=== PATIENT | male | born 1975 | race Caucasian/White ===

== ENCOUNTER 2018-12-03 13:26 | Inpatient (IN) | payer OTHER ==
[~2018-12-03] VITALS: Ht 185.4 cm; Wt 107.2 kg
--- NOTE | 2018-12-03 15:50 | NUR ---
Pt. admitted from [facility]. Pt. reports he had planned to commit suicide by hanging but drank 1 liter of Whiskey and fell asleep and that his found him with a rope and threw it away. Pt. states that the next next day he he drank another 1 liter of whiskey and then his daughters brought him the [facility] ER. Pt.'s BAL at [facility] was .249. Pt. arrived on unit via wheel chair. Pt. alert and oriented x4. Pt. calm and cooperative, presents with flushed face and slight tremor bilaterally in hands. Pt.'s vitals were 141/106 97%SPO2, 98.4 temp, 123 HR, and 20 resp. Pt. received ativan 1mg po. Pt. reports that he doesn't normally abuse ETOH but that he has been going through increased stress with his who is him and his work which is very stressful. Pt. is tearful, and reports he regrets planning to commit suicide. Pt. is calm and cooperative with admission. Skin assessment done and belongings checked in. Pt. placed on CIWA with score of 9. Pt.'s provider ordered Thiamine, clonidine, and folic acid, and 2MG Ativan now. RN to call Dr. Varma when CIWA is above 8 and give pt. 2mg ativan. Pt. not to exceed 6mg ativan in 3hr time. Med reconciliation done. Pt. ate dinner in community room. CIWA at 17:45 was 5. No ativan given. Pt. is ambulatory.
[2018-12-03] MEDS: LORazepam 1 MG tablet PO PRN ×2 (16:36→21:47)
[2018-12-03] MEDS ORDERED: OMEP40CA13 PO (17:18)
[2018-12-03] MEDS ORDERED: LISI40TA4 PO (17:18)
[2018-12-03] MEDS ORDERED: HYDR25TA4 PO (17:18)
[2018-12-03] MEDS ORDERED: lisinopril 20mg tablet PO ONE (17:35)
[2018-12-03] MEDS ORDERED: folic acid 1mg tablet PO ONE (17:45)
[2018-12-03] MEDS ORDERED: LORazepam 1 MG tablet PO ONE (17:45)
[2018-12-03] MEDS ORDERED: cloNIDine 0.1 mg tablet PO ONE (17:45)
[2018-12-03] MEDS ORDERED: thiamine 100mg tablet PO ONE (17:45)
[2018-12-03] MEDS ORDERED: LORazepam 1 MG tablet PO PRN (18:35)
[2018-12-03 19:46] VITALS: BP 135/83
[2018-12-03 20:05] VITALS: BP 142/104
[2018-12-03] MEDS: thiamine 100mg tablet PO SCH (20:41)
[2018-12-03] MEDS: folic acid 1mg tablet PO SCH (20:41)
[2018-12-03] MEDS: lisinopril 20mg tablet PO SCH (20:41)
--- NOTE | 2018-12-03 21:31 | NUR ---
Nursing Progress Note: Legal hold: 5150 Client on voluntary/involuntary status for DTS. Report received from nurse with use of LAURA Correa. Why are they here: Patient admitted from [facility]. Patient reports he had planned to commit suicide by hanging but drank 1 liter of Whiskey and fell asleep; his found him with a rope and threw it away. Patient states that the next day he drank another 1 liter of whiskey and then his daughters brought him to [facility]'s ER. Patient's blood alcohol level at [facility] was .249. Patient reports that he doesn't normally abuse ETOH but that he has been going through increased stress with his who is him and his work which is very stressful. Pt. is tearful, and reports he regrets planning to commit suicide. Assessment What has happened this shift: Patient is in his room in bed at change of shift. He appears anxious, and is being monitored per CIWA protocol. Patient expresses that he does not feel suicidal anymore. HE say's he is in "pain" He reports that he is lost because he's been with his for 20 years and now she is leaving him. Patients vitals signs has been stable and, he has only been reporting anxiety for the CIWA assessment. He is complaint with evening medications and keeps to himself and in his room this shift. S/I, H/I: Denies A/VH: Denies Sleep: See sleep assessment ADL's: Independent Group attendance: No groups this shift Were meds taken: Yes Any med S/E None noted Mental Status Exam Appearance: Well groomed, wearing green scrubs Eye contact: Direct Behavior: Stays in his room in bed Speech: Normal volume, rate and rhythm Mood: Depressed, sad, anxious Affect: Congruent to mood Thought process: Linear Thought Content: Thinking about his him Cognition: Alert & oriented x4 Insight: Fair Judgment: Fair Interventions PRN's used: Ativan Therapeutic interventions: Maintained a safe and therapeutic environment, ensured contract for safety, provided encouragement and positive reenforcement, monitored behaviors and need for intervention, CIWA per protocol, and maintained Q 15 min safety checks. Restraints/seclusion/emergency medication: N/A Justification of Continued Inpatient Treatment: Patient requires psychiatric evaluation for appropriate medication to stabilize current crisis. Without adequate treatment for current situation, patient is at high risk for readmission if discharged at this time.
[2018-12-03] MEDS ORDERED: padimate O/petrolatum,white stick (Chapstick) TP PRN (21:55)
[2018-12-04] MEDS: LORazepam 1 MG tablet PO PRN ×3 (04:06→19:53)
[2018-12-04] MEDS: pantoprazole 40mg Tablet.DR PO SCH (08:15)
[2018-12-04] MEDS: HYDROchlorothiazide 25mg tablet PO SCH (08:15)
[2018-12-04] MEDS: thiamine 100mg tablet PO SCH ×2 (08:15→19:51)
[2018-12-04] MEDS: folic acid 1mg tablet PO SCH ×2 (08:15→19:54)
[2018-12-04 08:18] VITALS: BP 125/87
--- NOTE | 2018-12-04 14:14 | NUR ---
Malnutrition consult: eating well, good appetite, eating 100%. d/w RN needing active diet order. No prior admission, no documented weight history. Pt presents with depression to unit. BMI 31. No edema. Normal muscle strength. No malnutrition at this time. Addendum: 12/04/18 at [address] Amended: Links added.
[2018-12-04] MEDS ORDERED: venlafaxine XR 37.5mg cap (Q24H) PO ONE (14:50)
[2018-12-04] MEDS ORDERED: mag hydrox/Alum hydrox/simeth 30ml oral suspension PO PRN (16:30)
[2018-12-04] MEDS ORDERED: hydrOXYzine 25 MG tablet PO PRN (16:30)
[2018-12-04] MEDS ORDERED: loperamide 2mg capsule PO PRN (16:30)
[2018-12-04] MEDS ORDERED: magnesium hydroxide 30ml (MOM) UD suspension PO PRN (16:30)
[2018-12-04] MEDS ORDERED: tuberculin, purif. prot. deriv. 5 units/0.1ml ID ONE (16:30)
[2018-12-04] MEDS ORDERED: acetaminophen 325mg tablet PO PRN ×2 (16:30)
[2018-12-04] MEDS: cloNIDine 0.1 mg tablet PO SCH ×2 (17:05→19:54)
--- NOTE | 2018-12-04 17:27 | NUR ---
Nursing Progress Note: Legal hold: 5150 Client on voluntary/involuntary status for DTS. Report received from nurse with use of LAURA Correa. Why are they here: Patient admitted from [facility]. Patient reports he had planned to commit suicide by hanging but drank 1 liter of Whiskey and fell asleep; his found him with a rope and threw it away. Patient states that the next day he drank another 1 liter of whiskey and then his daughters brought him to [facility]'s ER. Patient's blood alcohol level at [facility] was .249. Patient reports that he doesn't normally abuse ETOH but that he has been going through increased stress with his who is him and his work which is very stressful. Pt. is tearful, and reports he regrets planning to commit suicide. Assessment What has happened this shift: Received patient lying on bed. Patient has flat affect and continues to endorse depression. Patient denies suicidal thoughts at this time. Patients did visit have busy hours and afterwords patient was on his bed and stated he was just feeling really sad and became tearful. Patient did state that he was looking forward to getting out of here so he can move onto the next phase. That phase of being a rehab to drinking alcohol. Later in the day patient did shower. Patient refused all groups today and did a lot of reading while laying on his bed. Patient received PPD today which he tolerated well. S/I, H/I: Denies A/VH: Denies Sleep: See sleep assessment ADL's: Independent Group attendance: No groups this shift Were meds taken: Yes Any med S/E None noted Mental Status Exam Appearance: Well groomed, wearing green scrubs Eye contact: Direct Behavior: Stays in his room in bed Speech: Normal volume, rate and rhythm Mood: Depressed, sad, anxious Affect: Congruent to mood Thought process: Linear Thought Content: Thinking about his him Cognition: Alert & oriented x4 Insight: Fair Judgment: Fair Interventions PRN's used: Ativan Therapeutic interventions: Maintained a safe and therapeutic environment, ensured contract for safety, provided encouragement and positive reenforcement, monitored behaviors and need for intervention, CIWA per protocol, and maintained Q 15 min safety checks. Restraints/seclusion/emergency medication: N/A Justification of Continued Inpatient Treatment: Patient requires psychiatric evaluation for appropriate medication to stabilize current crisis. Without adequate treatment for current situation, patient is at high risk for readmission if discharged at this time.
[2018-12-04 19:38] VITALS: BP 140/101
[2018-12-04] MEDS: lisinopril 20mg tablet PO SCH (19:52)
[2018-12-04] MEDS: gabapentin 100mg capsule PO SCH (20:21)
[2018-12-04] MEDS ORDERED: gabapentin 400mg capsule PO SCH (21:00)
--- NOTE | 2018-12-04 22:36 | NUR ---
Nursing Progress Note: Legal hold: 5150 Client on voluntary/involuntary status for DTS. Report received from nurse with use of LAURA Correa. Why are they here: Patient admitted from [facility]. Patient reports he had planned to commit suicide by hanging but drank 1 liter of Whiskey and fell asleep; his found him with a rope and threw it away. Patient states that the next day he drank another 1 liter of whiskey and then his daughters brought him to [facility]'s ER. Patient's blood alcohol level at [facility] was .249. Patient reports that he doesn't normally abuse ETOH but that he has been going through increased stress with his who is him and his work which is very stressful. Pt. is tearful, and reports he regrets planning to commit suicide. Assessment What has happened this shift: Received patient lying on bed. Patient has flat affect and continues to endorse depression. Patient denies suicidal thoughts at this time. Patients did visit have busy hours and afterwords patient was on his bed and stated he was just feeling really sad and became tearful. Patient did state that he was looking forward to getting out of here so he can move onto the next phase. That phase of being a rehab to drinking alcohol. Later in the day patient did shower. Patient refused all groups today and did a lot of reading while laying on his bed. Patient received PPD today which he tolerated well. S/I, H/I: Denies A/VH: Denies Sleep: See sleep assessment ADL's: Independent Group attendance: No groups this shift Were meds taken: Yes Any med S/E None noted Mental Status Exam Appearance: Well groomed, wearing green scrubs Eye contact: Direct Behavior: Stays in his room in bed Speech: Normal volume, rate and rhythm Mood: Depressed, sad, anxious Affect: Congruent to mood Thought process: Linear Thought Content: Thinking about his him Cognition: Alert & oriented x4 Insight: Fair Judgment: Fair Interventions PRN's used: Ativan Therapeutic interventions: Maintained a safe and therapeutic environment, ensured contract for safety, provided encouragement and positive reenforcement, monitored behaviors and need for intervention, CIWA per protocol, and maintained Q 15 min safety checks. Restraints/seclusion/emergency medication: N/A Justification of Continued Inpatient Treatment: Patient requires psychiatric evaluation for appropriate medication to stabilize current crisis. Without adequate treatment for current situation, patient is at high risk for readmission if discharged at this time. Addendum: 12/04/18 at 2238 by Criselda Nguyen RN Note entered in error. Luis Alberto see other Nursing Progress Note for [employer] 12/04.
--- NOTE | 2018-12-04 22:38 | NUR ---
NOC 12/04-Nursing Progress Note: Legal hold: 5150 Client on voluntary/involuntary status for DTS. Report received from nurse with use of LAURA Garcia. Why are they here: Patient admitted from [facility]. Patient reports he had planned to commit suicide by hanging but drank 1 liter of Whiskey and fell asleep; his found him with a rope and threw it away. Patient states that the next day he drank another 1 liter of whiskey and then his daughters brought him to [facility]'s ER. Patient's blood alcohol level at [facility] was .249. Patient reports that he doesn't normally abuse ETOH but that he has been going through increased stress with his who is him and his work which is very stressful. Pt. is tearful, and reports he regrets planning to commit suicide. Assessment What has happened this shift: Patient in the hedrick walking at change of shift. He presents with a flat, depressed affect, but is talkative and discusses his day. He reports still feeling depressed, but denies any current SI. He reports that his kids will be here visiting for visiting hours which seems to brighten his affect a bit. After visiting with his children patient is tearful and reports being anxious and states "I just want to go to sleep right now." Patient is given his space. When checked on later patient is in his bed reading. He denies SI/HI, AH/VH this shift. He is compliant with HS medications. CIWA protocol done as ordered. S/I, H/I: Denies A/VH: Denies Sleep: See sleep assessment ADL's: Independent Group attendance: No groups this shift Were meds taken: Yes Any med S/E None noted Mental Status Exam Appearance: Well groomed, wearing green scrubs Eye contact: Direct Behavior: Stays in his room in bed reading Speech: Normal volume, rate and rhythm Mood: Depressed, sad, anxious Affect: Congruent to mood Thought process: Linear Thought Content: Thinking about his children and what he is going to do next. Cognition: Alert & oriented x4 Insight: Fair Judgment: Fair Interventions PRN's used: Ativan Therapeutic interventions: Maintained a safe and therapeutic environment, ensured contract for safety, provided encouragement and positive reenforcement, monitored behaviors and need for intervention, CIWA per protocol, and maintained Q 15 min safety checks. Restraints/seclusion/emergency medication: N/A Justification of Continued Inpatient Treatment: Patient requires psychiatric evaluation for appropriate medication to stabilize current crisis. Without adequate treatment for current situation, patient is at high risk for readmission if discharged at this time.
[2018-12-05] MEDS: pantoprazole 40mg Tablet.DR PO SCH (07:20)
[2018-12-05] MEDS: venlafaxine XR 75mg capsule (Q24H) PO SCH (07:20)
[2018-12-05] MEDS: HYDROchlorothiazide 25mg tablet PO SCH (07:20)
[2018-12-05] MEDS: cloNIDine 0.1 mg tablet PO SCH ×3 (07:20→20:26)
[2018-12-05] MEDS: thiamine 100mg tablet PO SCH ×2 (07:20→20:26)
[2018-12-05] MEDS: folic acid 1mg tablet PO SCH ×2 (07:20→20:26)
[2018-12-05] MEDS: gabapentin 100mg capsule PO SCH ×2 (07:23→12:20)
[2018-12-05] MEDS: LORazepam 1 MG tablet PO SCH ×3 (07:43→20:25)
[2018-12-05 08:17] VITALS: BP 141/93
--- NOTE | 2018-12-05 15:44 | NUR ---
Nursing Progress Note: Diogenes Legal hold: 5150 Client on voluntary/involuntary status for DTS. Report received from Dahlia MONTEZ Why are they here: Patient admitted from [facility]. Patient reports he had planned to commit suicide by hanging but drank 1 liter of Whiskey and fell asleep; his found him with a rope and threw it away. Patient states that the next day he drank another 1 liter of whiskey and then his daughters brought him to [facility]'s ER. Patient's blood alcohol level at [facility] was .249. Patient reports that he doesn't normally abuse ETOH but that he has been going through increased stress with his who is him and his work which is very stressful. Pt. is tearful, and reports he regrets planning to commit suicide. Ciwa assessment to be discontinued per Dr. Varma if vitals remain stable and scores do not increase. Assessment: What has happened this shift: Received patient lying on bed. Patient has flat affect and continues to endorse depression. Patient denies suicidal thoughts at this time. Initially client had no complaints but then shortly after assessment, client told a Tech that he needed Ativan. Client appeared anxious and shaky when approached with Ativan. He took without problems. His regular scheduled Ativan was held at 0800 due to administration just a bit earlier. Received a visit from his today and it appeared to go well. Client was quiet after visit and returned to his room. When he was checked, he had his head covered and was mute. He was questioned again and he stated, " I am ok" and continued his rest.Took his afternoon medication without problems and was then visiting with peers in Day room. Consumed all of his lunch and then asked for a shower which was granted. Client returned to his room after group and rested in bed. S/I, H/I: Denies A/VH: Denies Sleep: See sleep assessment ADL's: Independent Group attendance: afternoon Were meds taken: Yes Any med S/E None noted Mental Status Exam Appearance: Well groomed, wearing green scrubs Eye contact: Direct Behavior: Social on unit. Speech: Normal volume, rate and rhythm Mood: Depressed, sad, anxious Affect: Congruent to mood Thought process: Linear Thought Content: marraige complications Cognition: Alert & oriented x4 Insight: Fair Judgment: Fair Interventions: PRN's used: Ativan Therapeutic interventions: Maintained a safe and therapeutic environment, ensured contract for safety, provided encouragement and positive reenforcement, monitored behaviors and need for intervention, CIWA per protocol, and maintained Q 15 min safety checks. Restraints/seclusion/emergency medication: N/A Justification of Continued Inpatient Treatment: Patient requires psychiatric evaluation. and stabilization.
[2018-12-05 19:00] VITALS: BP 132/97
[2018-12-05] MEDS: gabapentin 300mg capsule PO SCH (20:26)
[2018-12-05] MEDS: lisinopril 20mg tablet PO SCH (20:26)
--- NOTE | 2018-12-06 01:01 | NUR ---
NOC 12/04-Nursing Progress Note: Legal hold: 5150 Client on voluntary/involuntary status for DTS. Report received from nurse with use of LAURA Garcia. Why are they here: Patient admitted from [facility]. Patient reports he had planned to commit suicide by hanging but drank 1 liter of Whiskey and fell asleep; his found him with a rope and threw it away. Patient states that the next day he drank another 1 liter of whiskey and then his daughters brought him to [facility]'s ER. Patient's blood alcohol level at [facility] was .249. Patient reports that he doesn't normally abuse ETOH but that he has been going through increased stress with his who is him and his work which is very stressful. Pt. is tearful, and reports he regrets planning to commit suicide. Assessment What has happened this shift: Patient is in the group room at change of shift. He spends his time this evening visiting with his during visiting ours and then in his room reading. He agrees to a 1:1 assessment at his bedside. Patient denies SI/HI, AH/VH. He states that things are improving with him and his and say's "It hurts a little less everyday." He reports that he is still depressed and rates it a 8/10. Conversation about when he discharges includes seeking counseling, a PCP and his need for a alcohol treatment program such as AA, patient has fair insight into his situation and knows he needs to take these steps to help get better. He is complaint with HS medications. S/I, H/I: Denies A/VH: Denies Sleep: See sleep assessment ADL's: Independent Group attendance: No groups this shift Were meds taken: Yes Any med S/E None noted Mental Status Exam Appearance: Well groomed, wearing green scrubs Eye contact: Direct Behavior: Stays in his room in bed reading Speech: Normal volume, rate and rhythm Mood: Depressed, sad, anxious Affect: Congruent to mood Thought process: Linear Thought Content: Things he needs to continue once discharged. Cognition: Alert & oriented x4 Insight: Fair Judgment: Fair Interventions PRN's used: None Therapeutic interventions: Maintained a safe and therapeutic environment, ensured contract for safety, provided encouragement and positive reenforcement, monitored behaviors and need for intervention, CIWA per protocol, and maintained Q 15 min safety checks. Restraints/seclusion/emergency medication: N/A Justification of Continued Inpatient Treatment: Patient requires psychiatric evaluation for appropriate medication to stabilize current crisis. Without adequate treatment for current situation, patient is at high risk for readmission if discharged at this time. Addendum: 12/06/18 at 0106 by Criselda Nguyen RN This is for NOC 12/05 Note, not 12/04.
[2018-12-06] MEDS: LORazepam 1 MG tablet PO SCH ×4 (02:00→20:34)
[2018-12-06 08:00] VITALS: BP 116/86
[2018-12-06] MEDS: cloNIDine 0.1 mg tablet PO SCH ×5 (08:34→20:37)
[2018-12-06] MEDS: gabapentin 300mg capsule PO SCH ×3 (08:34→20:35)
[2018-12-06] MEDS: thiamine 100mg tablet PO SCH ×2 (08:34→20:35)
[2018-12-06] MEDS: venlafaxine XR 75mg capsule (Q24H) PO SCH (08:34)
[2018-12-06] MEDS: pantoprazole 40mg Tablet.DR PO SCH (08:34)
[2018-12-06] MEDS: HYDROchlorothiazide 25mg tablet PO SCH (08:34)
[2018-12-06] MEDS: folic acid 1mg tablet PO SCH ×2 (08:34→20:34)
--- NOTE | 2018-12-06 16:57 | NUR ---
Nursing Progress Note Legal hold: 5150 Client on voluntary/involuntary status for DTS. Report received from Dahlia MONTEZ Why are they here: Patient admitted from [facility]. Patient reports he had planned to commit suicide by hanging but drank 1 liter of Whiskey and fell asleep; his found him with a rope and threw it away. Patient states that the next day he drank another 1 liter of whiskey and then his daughters brought him to [facility]'s ER. Patient's blood alcohol level at [facility] was .249. Patient reports that he doesn't normally abuse ETOH but that he has been going through increased stress with his who is him and his work which is very stressful. Pt. is tearful, and reports he regrets planning to commit suicide. Ciwa assessment to be discontinued per Dr. Varma if vitals remain stable and scores do not increase. Assessment: What has happened this shift: Patient up and visible on the unit today. Patient attended all meals in partially attending groups. Patient affect flat to sad and at times during interaction appears on the verge of tears. Patient continues to endorse depression, but denies suicidal thoughts and states he is looking forward to the next phase of getting his life back in order which includes going to a rehab for alcoholism. S/I, H/I: Denies A/VH: Denies Sleep: See sleep assessment ADL's: Independent Group attendance: afternoon Were meds taken: Yes Any med S/E None noted Mental Status Exam Appearance: Well groomed, wearing green scrubs Eye contact: Direct Behavior: Social on unit. Speech: Normal volume, rate and rhythm Mood: Depressed, sad, anxious Affect: Congruent to mood Thought process: Linear Thought Content: Marriage complications Cognition: Alert & oriented x4 Insight: Fair Judgment: Fair Interventions: PRN's used: Therapeutic interventions: Maintained a safe and therapeutic environment, ensured contract for safety, provided encouragement and positive reenforcement, monitored behaviors and need for intervention, and maintained Q 15 min safety checks. Restraints/seclusion/emergency medication: N/A Justification of Continued Inpatient Treatment: Patient requires psychiatric evaluation. and stabilization.
[2018-12-06 19:00] VITALS: BP 105/73
[2018-12-06] MEDS: lisinopril 20mg tablet PO SCH (20:35)
--- NOTE | 2018-12-07 00:45 | NUR ---
RN PROGRESS NOTE: THIS SHIFT: Client was visited by son. Client was in the group room, sitting alone after visit. Affect and mood are depressed. Client became tearful and stated it was hard to see his son leave. Client stated his mood was more depressed today. Client acknowledged he was on a 5250 and he was not expecting to stay on the unit for another two weeks. He is still endorsing rehab. Compliant with medications. Client would be at risk for self harm if discharged.
[2018-12-07] MEDS: LORazepam 1 MG tablet PO SCH ×4 (02:00→20:29)
[2018-12-07] MEDS: cloNIDine 0.1 mg tablet PO SCH ×2 (07:14→20:30)
[2018-12-07] MEDS: venlafaxine XR 75mg capsule (Q24H) PO SCH (07:14)
[2018-12-07] MEDS: folic acid 1mg tablet PO SCH ×2 (07:14→20:28)
[2018-12-07] MEDS: gabapentin 300mg capsule PO SCH ×3 (07:15→20:30)
[2018-12-07] MEDS: HYDROchlorothiazide 25mg tablet PO SCH (07:15)
[2018-12-07] MEDS: pantoprazole 40mg Tablet.DR PO SCH (07:15)
[2018-12-07] MEDS: thiamine 100mg tablet PO SCH ×2 (07:15→20:29)
[2018-12-07 08:00] VITALS: BP 120/89
[2018-12-07 08:34] VITALS: BP 120/89
--- NOTE | 2018-12-07 15:25 | NUR ---
Nursing Progress Note: Legal hold: 5250 Client on involuntary status for DTS. Report received from Esme Cordova RN Why are they here: Patient admitted from [facility]. Patient reports he had planned to commit suicide by hanging but drank 1 liter of Whiskey and fell asleep; his found him with a rope and threw it away. Patient states that the next day he drank another 1 liter of whiskey and then his daughters brought him to [facility]'s ER. Patient's blood alcohol level at [facility] was .249. Patient reports that he doesn't normally abuse ETOH but that he has been going through increased stress with his who is him and his work which is very stressful. Pt. is tearful, and reports he regrets planning to commit suicide. Assessment What has happened this shift: Patient awake at change of shift and took all medications as prescribed. He is in good spirits talking about going to a rehab program. He reports that his insurance has been really helpful in arranging for aftercare for him. His came to visit which he reports as an amicable visit. He was visible on the unit socializing with staff and patients. He attended meals and group. S/I, H/I: Denies A/VH: Denies Sleep: See sleep assessment ADL's: Independent showered today Group attendance: YES Were meds taken: Yes Any med S/E None noted Mental Status Exam Appearance: Well groomed, showered, clean Eye contact: Direct Behavior: Calm and pleasant Speech: Normal volume, rate and rhythm Mood: I feel good. Affect: Congruent to mood Thought process: Linear Thought Content: Future oriented Cognition: Alert & oriented x4 Insight: Fair Judgment: Fair Interventions PRN's used: None Therapeutic interventions: Maintained a safe and therapeutic environment, ensured contract for safety, provided encouragement and positive reenforcement, monitored behaviors and need for intervention, CIWA per protocol, and maintained Q 15 min safety checks. Restraints/seclusion/emergency medication: N/A Justification of Continued Inpatient Treatment: Patient requires psychiatric evaluation for appropriate medication to stabilize current crisis. Without adequate treatment for current situation, patient is at high risk for readmission if discharged at this time.
[2018-12-07 19:57] VITALS: BP 136/92
[2018-12-07] MEDS: lisinopril 20mg tablet PO SCH (20:30)
--- NOTE | 2018-12-08 01:59 | NUR ---
bud Progress Note: Legal hold: 5150 Client on voluntary/involuntary status for DTS. Report received from nurse with use of LAURA Correa. Why are they here: Patient admitted from [facility]. Patient reports he had planned to commit suicide by hanging but drank 1 liter of Whiskey and fell asleep; his found him with a rope and threw it away. Patient states that the next day he drank another 1 liter of whiskey and then his daughters brought him to [facility]'s ER. Patient's blood alcohol level at [facility] was .249. Patient reports that he doesn't normally abuse ETOH but that he has been going through increased stress with his who is him and his work which is very stressful. Pt. is tearful, and reports he regrets planning to commit suicide. Assessment What has happened this shift: The patient was seen in his room for 1:1. He had been wandering the halls, and not interacting with other clients. He presents as sad and depressed. The patient reports that his cheated on him, and that made him suicidal. He had already been having a hard time at stressful work place, so drank himself unconscious. "Luckily this kept me from being able to hang myself." He's talking to his and she says the divorce will happen, and he's ready to move forward. The patient believes he can get off alcohol with help from rehab. He's focused on his children who need their dad. The patient spent the evening walking around, but doesn't really interact with others. He took his HS meds, then went to bed. S/I, H/I: Denies A/VH: Denies Sleep: See sleep assessment ADL's: Independent Group attendance: No groups this shift Were meds taken: Yes Any med S/E None noted Mental Status Exam Appearance: Well groomed, wearing green scrubs Eye contact: Direct Behavior: Isolates, walks the halls. Speech: Normal volume, rate and rhythm Mood: Depressed, sad, anxious Affect: Flat Thought process: Linear, goal oriented. Thought Content: Thinking about his him Cognition: Alert & oriented x4 Insight: Fair Judgment: Fair Interventions PRN's used: Ativan Therapeutic interventions: Maintained a safe and therapeutic environment, ensured contract for safety, provided encouragement and positive reenforcement, monitored behaviors and need for intervention, CIWA per protocol, and maintained Q 15 min safety checks. Restraints/seclusion/emergency medication: N/A Justification of Continued Inpatient Treatment: Patient requires psychiatric evaluation for appropriate medication to stabilize current crisis. Without adequate treatment for current situation, patient is at high risk for readmission if discharged at this time.
[2018-12-08] MEDS: LORazepam 1 MG tablet PO SCH ×3 (07:33→20:11)
[2018-12-08] MEDS: folic acid 1mg tablet PO SCH ×2 (07:35→20:10)
[2018-12-08] MEDS: HYDROchlorothiazide 25mg tablet PO SCH (07:35)
[2018-12-08] MEDS: pantoprazole 40mg Tablet.DR PO SCH (07:35)
[2018-12-08] MEDS: thiamine 100mg tablet PO SCH ×2 (07:35→20:10)
[2018-12-08] MEDS: gabapentin 300mg capsule PO SCH ×3 (07:35→20:10)
[2018-12-08] MEDS: naltrexone 50mg tablet PO SCH (07:36)
[2018-12-08] MEDS: venlafaxine XR 75mg capsule (Q24H) PO SCH (07:42)
[2018-12-08] MEDS: cloNIDine 0.1 mg tablet PO SCH ×2 (07:43→20:10)
[2018-12-08 07:53] VITALS: BP 109/65
--- NOTE | 2018-12-08 14:23 | NUR ---
Initial: Good appetite, eating 75-100% of meals. No nutrition problem at this time. Recommend: 1. continue regular diet 2. weekly wts 3. bowel care as needed Addendum: 12/08/18 at [address] Amended: Links added.
--- NOTE | 2018-12-08 14:40 | NUR ---
Nursing Progress Note: Diogenes Legal hold: 5150 Client on voluntary/involuntary status for DTS. Report received from Hannah MONTEZ Why are they here: Patient admitted from [facility]. Patient reports he had planned to commit suicide by hanging but drank 1 liter of Whiskey and fell asleep; his found him with a rope and threw it away. Patient states that the next day he drank another 1 liter of whiskey and then his daughters brought him to [facility]'s ER. Patient's blood alcohol level at [facility] was .249. Patient reports that he doesn't normally abuse ETOH but that he has been going through increased stress with his who is him and his work which is very stressful. Pt. is tearful, and reports he regrets planning to commit suicide. Assessment What has happened this shift: Client was in bed at start of shift. Aroused easily for morning medications and was compliant. Client attended breakfast in Group room and visited with peers. Client presents as sad and withdrawn but argues he is, "ready to go home". Client had a visit from his this am and it appeared to go well. Client attended am group and participated. He denies any thoughts of self harm and contracts verbally for safe unit behaviors. Visible and social on unit and taking phone calls. No behavioral issues as of this writing. Attended groups and was no behavioral issue this shift. S/I, H/I: Denies A/VH: Denies Sleep: See sleep assessment ADL's: Independent Group attendance: yes Were meds taken: Yes Any med S/E None noted Mental Status Exam Appearance: Well groomed, wearing green scrubs Eye contact: Direct Behavior: Isolates, walks the halls. Speech: Normal volume, rate and rhythm Mood: Depressed, sad, anxious Affect: Flat Thought process: Linear, goal oriented. Thought Content: Thinking about his him Cognition: Alert & oriented x4 Insight: Fair Judgment: Fair Interventions PRN's used: Therapeutic interventions: Maintained a safe and therapeutic environment, ensured contract for safety, provided encouragement and positive reenforcement, monitored behaviors and need for intervention, CIWA per protocol, and maintained Q 15 min safety checks. Restraints/seclusion/emergency medication: N/A Justification of Continued Inpatient Treatment: Patient requires psychiatric evaluation for appropriate medication to stabilize current crisis. Without adequate treatment for current situation, patient is at high risk for readmission if discharged at this time.
[2018-12-08 19:00] VITALS: BP 141/98
[2018-12-08] MEDS: lisinopril 20mg tablet PO SCH (20:11)
--- NOTE | 2018-12-09 03:30 | NUR ---
RN PROGRESS NOTE: LEGAL HOLD: 5150 for DTS. Report received from TC Goldman REASON FOR ADMISSION: Client reported he had planned to commit suicide by hanging but drank 1 liter of Whiskey and fell asleep; his found him with a rope and threw it away. The next day his daughter found him and took him to [facility]. ASSESSMENT: THIS SHIFT: Client was in the rec room at [facility] watching TV. His affect is blunted and he appears depressed. Client reported he "misses his family" but that "things are going better". Client did not discuss his marriage. He stated, "I've gotten a lot of visits and phone calls." Client was compliant with meds. He awoke around 1:30 c/o a leg cramp. He refused PRN medications and stated, "I'll just walk it off." S/I, H/I: Denies A/VH: Denies ADL's: Independent Group attendance: N/A Were meds taken: Yes Any med S/E: None noted MSE: Appearance: Well groomed, wearing green scrubs Eye contact: Direct Behavior: Isolative. Speech: Normal volume, rate and rhythm Mood: Depressed, sad, anxious Affect: Blunted. Thought process: Linear, goal oriented. Thought Content: Family stress. Cognition: Alert & oriented x4 Insight: Fair Judgment: Fair INTERVENTIONS: Medications, 1:1 support. Justification of Continued Inpatient Treatment: Client needs further med stabilization and therapeutic support as he is a high risk for self harm and readmission.
[2018-12-09 07:42] VITALS: BP 127/84
[2018-12-09] MEDS: folic acid 1mg tablet PO SCH ×2 (07:47→20:34)
[2018-12-09] MEDS: thiamine 100mg tablet PO SCH ×2 (07:47→20:34)
[2018-12-09] MEDS: gabapentin 300mg capsule PO SCH ×3 (07:47→20:34)
[2018-12-09] MEDS: LORazepam 1 MG tablet PO SCH ×2 (07:47→13:36)
[2018-12-09] MEDS: venlafaxine XR 75mg capsule (Q24H) PO SCH (07:48)
[2018-12-09] MEDS: pantoprazole 40mg Tablet.DR PO SCH (07:48)
[2018-12-09] MEDS: HYDROchlorothiazide 25mg tablet PO SCH (07:48)
[2018-12-09] MEDS: naltrexone 50mg tablet PO SCH (07:48)
[2018-12-09] MEDS: cloNIDine 0.1 mg tablet PO SCH ×2 (07:48→20:34)
--- NOTE | 2018-12-09 17:12 | NUR ---
Nursing Progress Note Legal hold: 5150 Client on voluntary/involuntary status for DTS. Report received from Kasie MONTEZ, with use of SBAR. Why are they here: Patient admitted from [facility]. Patient reports he had planned to commit suicide by hanging but drank 1 liter of Whiskey and fell asleep; his found him with a rope and threw it away. Patient states that the next day he drank another 1 liter of whiskey and then his daughters brought him to [facility]'s ER. Patient's blood alcohol level at [facility] was .249. Patient reports that he doesn't normally abuse ETOH but that he has been going through increased stress with his who is him and his work which is very stressful. Pt. is tearful, and reports he regrets planning to commit suicide. Ciwa assessment to be discontinued per Dr. Varma if vitals remain stable and scores do not increase. Assessment: What has happened this shift: Received Pt in bed sleeping w/o distress at change of shift. Patient up and visible on the unit today. Patient attended all meals and attended groups. Patient feels like he is making progress and is able to joke at times about depression and generally going through hard times. Appears depressed and recognizes how alcohol has affected his ability to cope with both posotive and negative emotions. Affect remains flat and mood is sad. Patient continues to endorse depression, but denies suicidal thoughts and states he is looking forward to the next phase of getting his life back in order which includes going to a rehab for alcoholism. S/I, H/I: Denies A/VH: Denies Sleep: See sleep assessment ADL's: Independent Group attendance: afternoon Were meds taken: Yes Any med S/E None noted Mental Status Exam Appearance: Well groomed, wearing green scrubs Eye contact: Direct Behavior: Social on unit. Speech: Normal volume, rate and rhythm Mood: Depressed, sad, anxious Affect: Congruent to mood Thought process: Linear Thought Content: Marriage complications Cognition: Alert & oriented x4 Insight: Fair Judgment: Fair Interventions: PRN's used: Therapeutic interventions: Maintained a safe and therapeutic environment, ensured contract for safety, provided encouragement and positive reenforcement, monitored behaviors and need for intervention, and maintained Q 15 min safety checks. Restraints/seclusion/emergency medication: N/A Justification of Continued Inpatient Treatment: Patient requires psychiatric evaluation. and stabilization.
[2018-12-09 19:45] VITALS: BP 130/92
[2018-12-09] MEDS: lisinopril 20mg tablet PO SCH (20:34)
[2018-12-09] MEDS: traZODone 50mg tablet PO PRN ×2 (20:43→22:59)
[2018-12-09] MEDS ORDERED: LORazepam 1 MG tablet PO ONE (21:00)
--- NOTE | 2018-12-09 22:19 | NUR ---
Nursing Progress Note: One to one with the patient to assess for severity of depressive symptoms and self harm risk. He remains on q 15 minute safety checks and has not had any self injurious behaviors reported or observed. He denies active or passive suicidal thinking but he appeared depressed with a blunted affect and was tearful during the evening assessment when talking about his . He stated that he has accepted that his marriage is over and the grieving process was discussed with him and that there would be times when he experienced different emotions. He asked about medications that he could take that if he drank that he would be sick and he was encouraged to discuss it with the psychiatrist. He reports medication side effects of fatigue. He denies cravings for ETOH or withdrawal symptoms. He reports he has never been in AA or etoh treatment but is now interested in being sober. He stated that he has chronic problems with sleep and was drinking at night to go to sleep. He also stated that his job has been very stressful and that after he is discharged he plans to look for different work. He denies any psychotic symptoms and none were evident during the assessment. He denies thoughts to harm others. He stated that he wants to live for his kids. He stated that he wants to be discharged by Saturday to attend a cheer leading event with his daughter.
[2018-12-10] MEDS: cloNIDine 0.1 mg tablet PO SCH ×2 (07:39→20:39)
[2018-12-10] MEDS: gabapentin 300mg capsule PO SCH ×3 (07:39→20:39)
[2018-12-10] MEDS: pantoprazole 40mg Tablet.DR PO SCH (07:39)
[2018-12-10] MEDS: venlafaxine XR 75mg capsule (Q24H) PO SCH (07:39)
[2018-12-10] MEDS: HYDROchlorothiazide 25mg tablet PO SCH (07:39)
[2018-12-10] MEDS: naltrexone 50mg tablet PO SCH (07:41)
[2018-12-10] MEDS: thiamine 100mg tablet PO SCH ×2 (07:41→20:39)
[2018-12-10] MEDS: folic acid 1mg tablet PO SCH ×2 (07:41→20:39)
[2018-12-10] MEDS ORDERED: LORazepam 1 MG tablet PO SCH (08:00)
[2018-12-10 08:27] VITALS: BP 110/60
[2018-12-10] MEDS: LORazepam 1 MG tablet PO SCH ×2 (12:27→20:39)
--- NOTE | 2018-12-10 14:56 | NUR ---
Assessment:Nursing Progress Note: Jatin Legal hold: 5150 Client on voluntary/involuntary status for DTS. Report received from Kasie MONTEZ, with use of SBAR. Why are they here: Patient admitted from [facility]. Patient reports he had planned to commit suicide by hanging but drank 1 liter of Whiskey and fell asleep; his found him with a rope and threw it away. Patient states that the next day he drank another 1 liter of whiskey and then his daughters brought him to [facility]'s ER. Patient's blood alcohol level at [facility] was .249. Patient reports that he doesn't normally abuse ETOH but that he has been going through increased stress with his who is him and his work which is very stressful. Pt. is tearful, and reports he regrets planning to commit suicide. What has happened this shift: Received Pt in bed sleeping but awake. No somatic complaints at the time of this writing. Patient is compliant with all aspects of his care and took medications without issues. Patient BP was 95/62 when VS were taken. Gal recheck yielded a BP of 110/60. Client is focused on discharge and wants to see his son play his first football game this weekend. He verbally contracts for safe unit behaviors and currently denies S/I. Client needs to be proactive as it pertains to discharge follow up appointments. It has been requested of client to contact an aftercare provider and furnish the name to Certified Peer Specialist involved with his case. Client was told to anticipate his discharge on Saturday. S/I, H/I: Denies A/VH: Denies Sleep: See sleep assessment ADL's: Independent Group attendance: Yes Were meds taken: Yes Any med S/E None noted Mental Status Exam Appearance: Well groomed, wearing green scrubs Eye contact: Direct Behavior: Social on unit with staff as well as peers. Speech: Normal volume, rate and rhythm Mood: Depressed, sad, anxious Affect: Congruent to mood Thought process: Linear Thought Content: Marriage complications Cognition: Alert & oriented x4 Insight: Improving Judgment: Improving Interventions: PRN's used: Therapeutic interventions: Maintained a safe and therapeutic environment, ensured contract for safety, provided encouragement and positive reenforcement, monitored behaviors and need for intervention, and maintained Q 15 min safety checks. Restraints/seclusion/emergency medication: N/A Justification of Continued Inpatient Treatment: Patient requires psychiatric evaluation. and stabilization prior to discharge.
[2018-12-10 20:00] VITALS: BP 129/80
[2018-12-10] MEDS: traZODone 50mg tablet PO PRN (20:37)
[2018-12-10] MEDS: lisinopril 20mg tablet PO SCH (20:38)
--- NOTE | 2018-12-10 23:22 | NUR ---
The patient has been up on the unit and has been social and friendly with peers. His affect is less blunted. He is taking care of his ADLs independently and appeared clean and appropriately dressed. He continues on q 15 minute safety checks and has not had any self injurious behaviors reported or observed. He denies active or passive suicidal thinking at this time but stated he did not yet feel he was ready to discharge. Stated that he felt he wanted to continue with the plan to discharge on Saturday. He has been medication compliant and verbalizes understanding of his medications. He reports increased energy. He denies etoh cravings or withdrawal symptoms. He again expressed his desire to be on medications after discharge that would make him sick if he drank. His thought content is future oriented. He was given PRN Trazodone at per his request.
[2018-12-11] MEDS: thiamine 100mg tablet PO SCH ×2 (07:26→21:14)
[2018-12-11] MEDS: HYDROchlorothiazide 25mg tablet PO SCH (07:27)
[2018-12-11] MEDS: gabapentin 300mg capsule PO SCH ×3 (07:27→21:14)
[2018-12-11] MEDS: pantoprazole 40mg Tablet.DR PO SCH (07:27)
[2018-12-11] MEDS: venlafaxine XR 75mg capsule (Q24H) PO SCH (07:27)
[2018-12-11] MEDS: naltrexone 50mg tablet PO SCH (07:28)
[2018-12-11] MEDS: folic acid 1mg tablet PO SCH ×2 (07:28→21:17)
[2018-12-11] MEDS: cloNIDine 0.1 mg tablet PO SCH ×2 (07:28→21:16)
[2018-12-11 08:00] VITALS: BP 104/71
[2018-12-11] MEDS ORDERED: LORazepam 1 MG tablet PO SCH (08:00)
[2018-12-11] MEDS: LORazepam 1 MG tablet PO SCH ×2 (12:47→21:17)
--- NOTE | 2018-12-11 13:10 | NUR ---
Assessment:Nursing Progress Note: Jatin Legal hold: 5150 Client on voluntary/involuntary status for DTS. Report received from Kasie MONTEZ, with use of SBAR. Why are they here: Patient admitted from [facility]. Patient reports he had planned to commit suicide by hanging but drank 1 liter of Whiskey and fell asleep; his found him with a rope and threw it away. Patient states that the next day he drank another 1 liter of whiskey and then his daughters brought him to [facility]'s ER. Patient's blood alcohol level at [facility] was .249. Patient reports that he doesn't normally abuse ETOH but that he has been going through increased stress with his who is him and his work which is very stressful. Pt. is tearful, and reports he regrets planning to commit suicide. What has happened this shift: Received Pt in bed sleeping but awake. No somatic complaints at the time of this writing. Patient is compliant with all aspects of his care and took medications without issues. Client asked for prn medication prior to visiting hours as he anticipated being anxious over the course of visit from his . Client was given Atarax as ordered for agitation. The prn had good effect. Client is anticipating a discharge on Saturday and plans to return home with and family. Client does have leave time from work that he intends to utilize upon his discharge. He verbally contracts for safe unti behaviors and has not been a behavioral issue this shift. S/I, H/I: Denies A/VH: Denies Sleep: See sleep assessment ADL's: Independent Group attendance: Yes Were meds taken: Yes Any med S/E None noted Mental Status Exam Appearance: Well groomed, wearing green scrubs Eye contact: Direct Behavior: Social on unit with staff as well as peers. Speech: Normal volume, rate and rhythm Mood: Depressed, sad, anxious Affect: Congruent to mood Thought process: Linear Thought Content: Marriage complications Cognition: Alert & oriented x4 Insight: Improving Judgment: Improving Interventions: PRN's used: Therapeutic interventions: Maintained a safe and therapeutic environment, ensured contract for safety, provided encouragement and positive reenforcement, monitored behaviors and need for intervention, and maintained Q 15 min safety checks. Restraints/seclusion/emergency medication: N/A Justification of Continued Inpatient Treatment: Patient requires psychiatric evaluation. and stabilization prior to discharge.
[2018-12-11 20:00] VITALS: BP 119/81
[2018-12-11] MEDS ORDERED: LISI40TA4 PO (20:56)
[2018-12-11] MEDS ORDERED: ATI1T PO (20:56)
[2018-12-11] MEDS ORDERED: CLON0.1T20 PO (20:56)
[2018-12-11] MEDS ORDERED: HYDR25TA4 PO (20:56)
[2018-12-11] MEDS ORDERED: VENL225T3 PO (20:56)
[2018-12-11] MEDS ORDERED: HYDR50TA65 PO (20:56)
[2018-12-11] MEDS ORDERED: TRAZ-219 PO (20:56)
[2018-12-11] MEDS ORDERED: NALT50TA PO (20:56)
[2018-12-11] MEDS ORDERED: DISU250T PO (21:01)
[2018-12-11] MEDS: lisinopril 20mg tablet PO SCH (21:16)
[2018-12-11] MEDS: traZODone 50mg tablet PO PRN (21:20)
--- NOTE | 2018-12-12 01:36 | NUR ---
Assessment:Nursing Progress Note: Jatin Legal hold: 5150 Client on voluntary/involuntary status for DTS. Report received from LAURA Garcia, with use of SBAR. Why are they here: Patient admitted from [facility]. Patient reports he had planned to commit suicide by hanging but drank 1 liter of Whiskey and fell asleep; his found him with a rope and threw it away. Patient states that the next day he drank another 1 liter of whiskey and then his daughters brought him to [facility]'s ER. Patient's blood alcohol level at [facility] was .249. Patient reports that he doesn't normally abuse ETOH but that he has been going through increased stress with his who is him and his work which is very stressful. Pt. is tearful, and reports he regrets planning to commit suicide. What has happened this shift: Following shift change this patient visited with his . Afterwards he submitted to an interview. 1:1 Patient is well oriented and cooperative. His thought is linear. He denies depression, S/I, or H/I. The patient states he had a little anxiety earlier but feels better after visiting with his . "We are but are going to work on it." The patient describes goals of getting his life together. This patient is medication compliant. Patient expressed sadness on day shift. He denies this now. S/I, H/I: Denies A/VH: Denies Sleep: See sleep assessment ADL's: Independent Group attendance: Yes Were meds taken: Yes Any med S/E None noted. Mental Status Exam Appearance: Well groomed, wearing green scrubs Eye contact: Direct Behavior: Social on unit with staff as well as peers. Speech: Normal volume, rate and rhythm Mood: Depressed, sad, anxious Affect: Congruent to mood Thought process: Linear Thought Content: Marriage complications Cognition: Alert & oriented x4 Insight: Improving Judgment: Improving Interventions: PRN's used: Therapeutic interventions: Maintained a safe and therapeutic environment, ensured contract for safety, provided encouragement and positive reenforcement, monitored behaviors and need for intervention, and maintained Q 15 min safety checks. Restraints/seclusion/emergency medication: N/A Justification of Continued Inpatient Treatment: Patient requires psychiatric evaluation. and stabilization prior to discharge.
[2018-12-12] MEDS: venlafaxine XR 75mg capsule (Q24H) PO SCH (07:53)
[2018-12-12] MEDS: naltrexone 50mg tablet PO SCH (07:53)
[2018-12-12] MEDS: pantoprazole 40mg Tablet.DR PO SCH (07:53)
[2018-12-12] MEDS: folic acid 1mg tablet PO SCH (07:53)
[2018-12-12] MEDS: thiamine 100mg tablet PO SCH (07:53)
[2018-12-12] MEDS: gabapentin 300mg capsule PO SCH ×2 (07:54→13:00)
[2018-12-12 08:00] VITALS: BP 101/67
[2018-12-12] MEDS: HYDROchlorothiazide 25mg tablet PO SCH (08:00)
[2018-12-12] MEDS: cloNIDine 0.1 mg tablet PO SCH (08:00)
[2018-12-12] MEDS ORDERED: venlafaxine XR 37.5mg cap (Q24H) PO SCH (08:00)
[2018-12-12] MEDS ORDERED: LORazepam 1 MG tablet PO SCH (08:00)
[2018-12-12] MEDS: LORazepam 1 MG tablet PO SCH (13:13)
--- NOTE | 2018-12-12 16:11 | NUR ---
Discharge Note Legal hold: 5250 Client on involuntary status for DTS. Patient was admitted on a 5150 for DTS at [facility]. Patient's BAL at [facility] was 0.249. Patient reports that he doesn't normally abuse ETOH but that he has been going through increased stress with his who is him and that his work is very stressful. He made two attempts to kill himself by hanging and ETOH. Pt. is tearful, and reports he regrets planning to commit suicide. S/I, H/I: Denies A/VH: Denies Sleep: Sleeping well ADL's: Independent Group attendance: Yes Were meds taken: Yes Any med S/E None noted Mental Status Exam Appearance: Well groomed, showered and wearing clothes to go home in Eye contact: Direct Behavior: Social on unit with staff as well as peers. Speech: Normal volume, rate and rhythm Mood: Appears anxious to leave; somewhat tearful when talking about his daughter cheering and that he has never missed one of her games. Affect: Congruent to mood Thought process: Linear Thought Content: Marriage complications Cognition: A/Ox4 Insight: Fair Judgment: Fair Interventions: PRN's used: None Therapeutic interventions: Provided therapeutic communication and active listening, education provided on referrals in the community, i.e. ETOH abuse and SI, and follow up appointments. Client received Bedside Medication Delivery education provided on home medication orders. Pt declined smoking cessation resources and referrals. Personal belongings inventoried and returned to patient per ESVIN Atkinson. maintained Q 15 min safety checks while in the hospital at all times.
== END 2018-12-12 15:45 | disposition home or self-care (01) | DRG 885 ==
LOC: ADULT MH 13:26
PROVIDERS: ADMIT Psychiatry & Neurology Psychiatry; ATTEND Psychiatry & Neurology Psychiatry
DX: F33.2 Major depressive disorder, recurrent severe without psychotic features (principal); R45.851 Suicidal ideations; I10 Essential (primary) hypertension; F10.20 Alcohol dependence, uncomplicated; K21.9 Gastro-esophageal reflux disease without esophagitis; F43.22 Adjustment disorder with anxiety; Z82.41 Family history of sudden cardiac death; Z82.5 Family history of asthma and other chronic lower respiratory diseases; Z79.899 Other long term (current) drug therapy; Z80.8 Family history of malignant neoplasm of other organs or systems; Z82.49 Family history of ischemic heart disease and other diseases of the circulatory system
CPT/HCPCS: 87081; 99285; Z7610